=== PATIENT | male | born 1945 | race Caucasian/White ===

== ENCOUNTER → 2016-08-01 | Outpatient (CLI) | payer OTHER ==
[2016-08-01 11:49] LABS: HEMOGLOBIN 15.4 g/dL (13.7-18.0)
[2016-08-01 11:58] LABS: BLOOD UREA NITROGEN 13 mg/dL (7-18)
== END | disposition home or self-care (01) ==
LOC: LAB 11:34
PROVIDERS: ATTEND Neurological Surgery
DX: M48.06 Spinal stenosis, lumbar region (principal)
CPT/HCPCS: 36415; 80048; 85025

== ENCOUNTER 2016-08-08 08:19 | Day surgery (SDC) | payer OTHER ==
[~2016-08-08] VITALS: Ht 177.8 cm; Wt 94.0 kg
[~2016-08-08 08:19] MED LIST: BACITRACIN 50,000 UNIT ONE; BUPIVACAINE/PF-EPI 0.5% 1:200K ONE; THROMBIN 5,000 UNIT VIAL TP ONE; methylPREDNISolone SOD SUCC 125 MG/2 ML ONE
[2016-08-08] MEDS ORDERED: LACTATED RINGERS 1,000 ML IV SCH (09:21)
[2016-08-08] MEDS ORDERED: OMEP-110 PO (09:29)
[2016-08-08] MEDS ORDERED: METF500T4 PO (09:29)
[2016-08-08] MEDS ORDERED: BUDE10.2 INH (09:29)
[2016-08-08] MEDS ORDERED: GABA300C10 PO (09:29)
[2016-08-08] MEDS ORDERED: AMLO10TA2 PO (09:29)
[2016-08-08] MEDS ORDERED: ATOR80TA75 PO (09:29)
[2016-08-08] MEDS ORDERED: CARV12.52 PO (09:29)
[2016-08-08] MEDS ORDERED: TIOT18CA INH (09:29)
[2016-08-08 09:35] VITALS: BP 148/83
[2016-08-08] MEDS ORDERED: SUCCINYLCHOLINE 20 MG/ML, 10ML ONE (10:41)
[2016-08-08] MEDS ORDERED: ONDANSETRON 2MG/ML, 2ML ONE (10:41)
[2016-08-08] MEDS ORDERED: PROPOFOL 10 MG/ML, 20ML ONE (10:41)
[2016-08-08] MEDS ORDERED: CEFAZOLIN 1,000 MG ONE (10:41)
[2016-08-08] MEDS ORDERED: NEOSTIGMINE 1 MG/ML, 10ML ONE (10:41)
[2016-08-08] MEDS ORDERED: ROCURONIUM 10 MG/ML ONE (10:41)
[2016-08-08] MEDS ORDERED: GLYCOPYRROLATE 0.2MG/1ML ONE (10:41)
[2016-08-08] MEDS ORDERED: hydrALAzine 20 MG/ML, 1ML IV PRN (12:00)
[2016-08-08] MEDS ORDERED: HYDROmorphone 1 MG/ML, 1ML IV PRN (12:00)
[2016-08-08] MEDS ORDERED: LABETALOL 5MG/ML, 20ML IV PRN (12:00)
[2016-08-08] MEDS ORDERED: ONDANSETRON 2MG/ML, 2ML IVPush PRN (12:00)
[2016-08-08] MEDS ORDERED: OXYcodone 5 MG/5 ML ORAL.SOL UDC PO PRN (12:00)
[2016-08-08] MEDS ORDERED: ACETAMINOPHEN 325 MG TABLET PO PRN (12:00)
[2016-08-08] MEDS ORDERED: METOCLOPRAMIDE 5 MG/ML, 2ML IV PRN (12:00)
[2016-08-08] MEDS ORDERED: OXYcodone 5 MG/5 ML ORAL.SOL UDC ONE (12:12)
[2016-08-08] MEDS ORDERED: FENTANYL PF 100 MCG/2ML ONE (12:12)
[2016-08-08] MEDS: FENTANYL PF 100 MCG/2ML IV PRN ×2 (12:15→12:31)
[2016-08-08] MEDS ORDERED: DIAZEPAM 5 MG TABLET ONE (13:05)
[2016-08-08] MEDS ORDERED: CYCLOBENZAPRINE 10 MG TABLET PO PRN (13:30)
[2016-08-08] MEDS ORDERED: DIAZEPAM 5 MG TABLET PO PRN (13:30)
[2016-08-08] MEDS ORDERED: METHOCARBAMOL 750 MG TABLET PO PRN (13:30)
== END 2016-08-08 15:50 | disposition home or self-care (01) ==
LOC: OUT 08:19
PROVIDERS: ATTEND Neurological Surgery
DX: M48.06 Spinal stenosis, lumbar region (principal); E11.9 Type 2 diabetes mellitus without complications; J44.9 Chronic obstructive pulmonary disease, unspecified; I10 Essential (primary) hypertension; Z98.1 Arthrodesis status; Z87.891 Personal history of nicotine dependence; Z83.3 Family history of diabetes mellitus; Z82.49 Family history of ischemic heart disease and other diseases of the circulatory system
CPT/HCPCS: 63047; 63048; 72100; 82962; J0330; J0690; J2250; J2405; J2704; J2710; J2930; J3010; J7120; J3490